=== PATIENT | male | born 1980 | race Caucasian/White ===

== ENCOUNTER 2022-03-20 11:14 | Outpatient (CLI) | payer BC, SELFPAY ==
[2022-03-20 11:36] LABS: ABG PCO2 39.1 mmHg (35-45); ABG PH Result 7.44 (7.35-7.45); Alveolar-Arterial Oxygen Gradi 4.7 mmHg (5-10); Arterial Blood Gas Hematocrit 56.3 % (42-52); Base Excess ABG 2.4 mmol/L (-2.0-2.0); Blood Gas Allen Test Pos; Blood Gas Sample Site Radial, right; Blood Gas Sample Type Arterial; Carboxyhemoglobin 0.2 %THgb (0.4-20.1); HCO3 ABG 26.6 mmol/L (22-26); Ionized Calcium Level - ABG 1.2 mmol/L (1.1-1.4); Methemoglobin 0.6 % (0.4-1.5); Oxygen Device ROOM AIR; Oxygen Saturation ABG 94.7; PO2 ABG 66.3 mmHg (80.0-100.0); Potassium Level - ABG 4.1 mmol/L (3.5-5.0); Total Hemoglobin 18.4 g/dL (14-18)
[2022-03-20 12:59] LABS: Ketone (Acetest) Serum Negative (Negative)
== END 2022-03-20 11:15 | disposition home or self-care (01) ==
PROVIDERS: PCP Family Medicine; Visit Provider Family Medicine
DX: E87.20 Acidosis, unspecified (principal)
CPT/HCPCS: 36415; 36600; 80051; 82009; 82330; 82805

== ENCOUNTER 2022-03-22 11:41 | Outpatient (CLI) | payer BC, SELFPAY ==
[2022-03-22 13:55] LABS: D Dimer 0.34 ug/mIFEU (0-0.59)
== END 2022-03-22 11:42 | disposition home or self-care (01) ==
PROVIDERS: PCP Family Medicine; Visit Provider Family Medicine
DX: R06.00 Dyspnea, unspecified (principal)
CPT/HCPCS: 85378

== ENCOUNTER 2024-10-24 09:54 | Outpatient (CLI) | payer BC, SELFPAY ==
--- NOTE | 2024-10-24 10:00 | CT_ITS ---
WS: [id number] CT NECK TECHNIQUE: Contrast-enhanced CT of the neck with coronal and sagittal reformatted images. CLINICAL INFORMATION: Neck pain COMPARISON: None. DLP: 362.[address] scans at [facility] use at least one of these dose optimization techniques: automated exposure control; mA and/or kV adjustment per patient size (includes targeted exams where dose is matched to clinical indication); or iterative reconstruction. FINDINGS: Partially visualized spinal stimulator. Mastoid air cells are well aerated. Paranasal sinuses are well aerated. Normal posterior nasopharynx. Normal parapharyngeal fat. Parotid glands are normal. Normal submandibular glands. No evidence of supraglottic or glottic mass. Few very tiny thyroid lesions. Palpable marker overlying the RIGHT anterior strap muscles and thyroid gland. No focal abnormalities in this area. Normal glottis. Normal subglottic airway. There is no cervical lymphadenopathy. No other acute findings. CT/CT neck w con* [id number] IMPRESSION: 1. No suspicious findings in the area of palpable concern RIGHT neck. 2. Partially visualized spinal stimulator. 3. No other suspicious findings.
[2024-10-24] MEDS: iohexol 350 mg/mL 500 mL Btl (per mL) IV (10:29)
== END 2024-10-24 09:55 | disposition home or self-care (01) ==
LOC: RAD 09:59
PROVIDERS: PCP Family Medicine; Visit Provider Family Medicine
DX: M54.2 Cervicalgia (principal); R22.1 Localized swelling, mass and lump, neck
CPT/HCPCS: 70491